=== PATIENT | male | born 1995 | race Caucasian/White ===

== ENCOUNTER 2018-03-17 14:20 | Emergency (ER) | payer MEDICAID | END 2018-03-17 17:27 | disposition home or self-care (01) | LOC: FTE 14:20 | DX: S49.92XA Unspecified injury of left shoulder and upper arm, initial encounter (principal); V89.3XXA Person injured in unspecified nonmotor-vehicle accident, traffic, initial encounter | CPT/HCPCS: 73030; 99283-25 ==